=== PATIENT | female | born 1965 | race Caucasian/White ===

== ENCOUNTER 2021-03-18 15:19 | Observation (INO) ==
[2021-03-18] MEDS ORDERED: Ondansetron 4 MG/2 ML VIAL IVP ONE (15:52)
[2021-03-18] MEDS ORDERED: 0.9 % Sodium Chloride 1,000 ML IVC ONE ×2 (15:52→21:04)
[2021-03-18 16:15] LABS: Hematocrit 42.9 % (35.3-44.9); Mean Corpuscular HGB Conc 32.6 g/dL (31.6-35.5); Mean Corpuscular Hemoglobin 31.6 pg (28.0-33.3); Mean Corpuscular Volume 96.8 fL (83.0-100.0); Mean Platelet Volume 10.9 fL (9.4-12.4); Nucleated Red Blood Cells 0.2 /100 WBC (0); Platelet Count 438 K/mcL (140-400); Red Blood Count 4.43 M/mcL (3.82-4.97); Red Cell Distribution Width 14.3 % (11.5-14.5); White Blood Count 18.7 K/mcL (4.3-11.1)
[2021-03-18 16:23] LABS: INR 1.1; Prothrombin Time 12.9 Seconds (9.4-12.1)
[2021-03-18 16:28] LABS: Eosinophils # 1.1 K/mcL (0.0-0.6); Lymphocytes # 1.9 K/mcL (0.6-4.6); Neutrophils # 15.7 K/mcL (1.6-8.9)
[2021-03-18 16:31] LABS: Bilirubin,Direct 0.2 mg/dL (0.0-0.2); Bilirubin,Indirect 0.5 mg/dL (0.0-1.0); Bilirubin,Total 0.7 mg/dL (0.3-1.0); Calcium 9.7 mg/dL (8.6-10.3); Potassium 4.5 mEq/L (3.5-5.1)
[2021-03-18] MEDS ORDERED: 0.9 % Sodium Chloride 1,000 ML IVC SCH (16:45)
[2021-03-18] MEDS ORDERED: Pantoprazole 40 MG VIAL IVP ONE (17:10)
[2021-03-18] MEDS ORDERED: Morphine Sulfate 2 MG/ML SYRINGE IVP ONE (17:10)
[2021-03-18] MEDS ORDERED: cefOXitin 2,000 MG in Water for inj. (sterile) 20 ML IVP ONE (17:15)
[2021-03-18] MEDS ORDERED: Ondansetron 4 MG/2 ML VIAL IVP PRN (18:14)
[2021-03-18] MEDS ORDERED: Naloxone 0.4 MG/ML INJ IVP PRN (18:14)
[2021-03-18] MEDS ORDERED: Nicotine 21 MG PATCH.TD24 TD SCH ×2 (18:17→22:15)
[2021-03-18] MEDS ORDERED: Morphine Sulfate 2 MG/ML SYRINGE IVP PRN (18:18)
[2021-03-18] MEDS ORDERED: Albuterol 2.5 MG/3 ML NEBULIZER IH PRN (18:19)
[2021-03-18] MEDS ORDERED: *HR* Dextrose 50 % in Water (Vial) 50 ML VIAL IVP PRN (18:42)
[2021-03-18] MEDS ORDERED: D5% in Water 1,000 ML IVC PRN (18:42)
[2021-03-18] MEDS ORDERED: Dextrose Gel 15 GM/37.5 ML TUBE PO PRN ×2 (18:42)
[2021-03-18 21:19] LABS: Estimated Average Glucose 140 mg/dl; Hemoglobin A1C 6.5 %
[2021-03-18] MEDS: *HR* Heparin 5,000 UNIT/ML VIAL SQ SCH (22:12)
[2021-03-18] MEDS: Piperacillin/Tazobactam 3.375 GM in 0.9 % Sodium Chloride Mini Bag 100 ML IVPB SCH (23:42)
[2021-03-19] MEDS: 0.9 % Sodium Chloride 1,000 ML IVC SCH ×3 (03:08→11:33)
[2021-03-19] MEDS: *HR* Heparin 5,000 UNIT/ML VIAL SQ SCH (06:09)
[2021-03-19 06:27] LABS: Bilirubin,Urine Negative (Negative); Blood,Urine Negative (Negative); Clarity,Urine Cloudy (Clear); Glucose,Urine (UA) Normal (Normal); Ketones,Urine Trace mg/dL (Negative); Leukocyte Esterase,Urine Small (Negative); Nitrite,Urine Positive (Negative); Protein,Urine 100 mg/dL (Neg-Trace); Urobilinogen,Urine Normal (Normal)
[2021-03-19 06:39] LABS: Color,Urine Dark Yellow (Yellow)
[2021-03-19 06:40] LABS: Basophils % 0.2 %; Eosinophils # 0.1 K/mcL (0.0-0.6); Eosinophils % 0.6 %; Hematocrit 41.5 % (35.3-44.9); Hemoglobin 12.9 g/dL (11.5-15.4); Immature Granulocytes % 0.2 % (0-4); Lymphocytes % 15.5 %; Mean Corpuscular HGB Conc 31.1 g/dL (31.6-35.5); Mean Corpuscular Hemoglobin 30.9 pg (28.0-33.3); Mean Corpuscular Volume 99.5 fL (83.0-100.0); Mean Platelet Volume 11.6 fL (9.4-12.4); Monocytes # 0.8 K/mcL (0.0-1.3); Monocytes % 6.2 %; Neutrophils # 9.9 K/mcL (1.6-8.9); Nucleated Red Blood Cells 0.3 /100 WBC (0); Platelet Count 392 K/mcL (140-400); Red Blood Count 4.17 M/mcL (3.82-4.97); Red Cell Distribution Width 14.6 % (11.5-14.5); Segmented Neutrophils % 77.3 %; White Blood Count 12.8 K/mcL (4.3-11.1)
[2021-03-19 06:41] LABS: RBC,Urine 0-3 per hpf (0-3); WBC,Urine 50-100 per hpf (0-3)
[2021-03-19 06:44] LABS: Renal Epithelial Cells,Urine Few per hpf (None-Few)
[2021-03-19 06:46] LABS: Granular Casts,Urine Few per lpf (None Seen)
[2021-03-19 06:48] LABS: Squamous Epithelial Cell,Urine Moderate per hpf (None-Few)
[2021-03-19 06:49] LABS: Bacteria,Urine Moderate per hpf (None-Few)
[2021-03-19 06:52] LABS: Calcium 8.3 mg/dL (8.6-10.3); Magnesium 1.8 mg/dL (1.6-2.6); Potassium 5.3 mEq/L (3.5-5.1)
[2021-03-19] MEDS ORDERED: Losartan/HCTZ 50-12.5 TABLET PO SCH (09:00)
[2021-03-19] MEDS: Piperacillin/Tazobactam 3.375 GM in 0.9 % Sodium Chloride Mini Bag 100 ML IVPB SCH (09:01)
[2021-03-19 10:29] LABS: ABG Base Excess -6 mEq/L (-2 to 3); ABG HCO3 26 mEq/L (21-27); ABG Oxygen Saturation 82 % (95-98); ABG PCO2 77 mmHg (35-45); ABG PH 7.13 pH Units (7.32-7.45); ABG PO2 62 mmHg (85-104); ABG TCO2 28 mEq/L (20-26)
[2021-03-19] MEDS ORDERED: 0.9 % Sodium Chloride 1,000 ML IVC SCH (11:49)
[2021-03-19 11:54] LABS: Albumin 3.4 g/dL (3.5-5.7); Bilirubin,Direct 0.2 mg/dL (0.0-0.2); Bilirubin,Indirect 0.2 mg/dL (0.0-1.0); Bilirubin,Total 0.4 mg/dL (0.3-1.0); Globulin 3.5 g/dL (2.4-3.5); Total Protein 6.9 g/dL (6.4-8.9)
[2021-03-19 13:16] LABS: ABG Base Excess -4 mEq/L (-2 to 3); ABG HCO3 27 mEq/L (21-27); ABG Oxygen Saturation 93 % (95-98); ABG PCO2 76 mmHg (35-45); ABG PH 7.15 pH Units (7.32-7.45); ABG PO2 87 mmHg (85-104); ABG TCO2 29 mEq/L (20-26); Blood Gas Pressure Support 16 cm H2O
[2021-03-19 13:35] VITALS: BP 94/59
== END 2021-03-19 15:04 | disposition short-term general hospital (02) ==
LOC: INPPIK 15:19 → EMEROOPIK 15:19 → INPPIK 19:56
PROVIDERS: ADMIT Family Medicine; ATTEND Family Medicine